=== PATIENT | male | born 1960 | race Caucasian/White ===

== ENCOUNTER 2019-07-15 15:31 | Emergency (ER) | payer BC ==
[~2019-07-15] VITALS: Ht 167.6 cm; Wt 75.7 kg
[2019-07-15 15:35] VITALS: Ht 167.6 cm; Wt 75.7 kg
[2019-07-15 17:11] VITALS: BP 133/79
== END 2019-07-15 17:11 | disposition home or self-care (01) ==
LOC: ED 15:31
DX: S01.81XA Laceration without foreign body of other part of head, initial encounter (principal); E11.9 Type 2 diabetes mellitus without complications; W18.09XA Striking against other object with subsequent fall, initial encounter; Y93.89 Activity, other specified; Y92.89 Other specified places as the place of occurrence of the external cause; Y99.8 Other external cause status